=== PATIENT | female | born 1950 | race Caucasian/White ===

== ENCOUNTER 2021-02-08 13:43 | Emergency (ER) | payer MEDICARE ==
[2021-02-08 13:52] VITALS: BP 163/75; PULSE 60; RESP 18; TEMP 98.5
--- NOTE | 2021-02-08 14:30 | ED ---
Skin/Abscess/FB HPI - General Chief complaint: Skin/Abscess/Foreign Body Stated complaint: Female UG Time Seen by Provider: 02/08/21 14:01 Source: patient Mode of arrival: ambulatory Limitations: no limitations - History of Present Illness Initial comments: Charity 70-year-old female presents the ER today for evaluation of vaginal discomfort. Patient states yesterday she was outside all day she did notice multiple ticks on her but was able to remove them. She states that this morning she had some vaginal discomfort upon wiping and looked at her vulva with a mere and was concerned that she saw dark spot was concerned she may have a tick on her vagina. - Related Data Previous Rx's Medication Instructions Recorded Nitrofurantoin Monohyd/M-Cryst 100 mg PO Q12HR #6 cap 02/08/21 [Macrobid] Allergies Allergy/AdvReac Type Severity Reaction Status Date / Time Penicillins Allergy palpitation Verified 02/08/21 13:52 s Review of Systems ROS Statement: Those systems with pertinent positive or pertinent negative responses have been documented in the HPI. ROS Other: All systems not noted in ROS Statement are negative. Past Medical History Past Medical History: Atrial Fibrillation, Hypertension, Thyroid Disorder History of Any Multi-Drug Resistant Organisms: None Reported Past Surgical History: Breast Surgery, Orthopedic Surgery Additional Past Surgical History / Comment(s): minh knees,rt shoulder, rt thumb, minh cataracts Past Psychological History: Panic Disorder Smoking Status: Never smoker Past Alcohol Use History: None Reported Past Drug Use History: None Reported General Exam - General Exam Comments Initial Comments: Physical Exam GENERAL: Patient is well-developed and well-nourished. Patient is nontoxic and well-hydrated and is in no distress. HENT: Normocephalic, Atraumatic. EYES: PERRL, EOMI PULMONARY: Unlabored respirations. CARDIOVASCULAR: RRR Warm and well perfused extremities ABDOMEN: Non-distended SKIN: No rashes or bruising : Normal external genitalia, small area of irritation/abrasion at vaginal introitus NEUROLOGIC: Alert and oriented Normal speech Normal gait MUSCULOSKELETAL: Moving all extremities with no apparent injury PSYCHIATRIC: No SI/HI Limitations: no limitations Course Vital Signs 02/08/21 13:45 Temperature 98.5 F Pulse Rate 60 Respiratory 18 Rate Blood Pressure 163/75 O2 Sat by Pulse 99 Oximetry Medical Decision Making - Medical Decision Making She was seen and evaluated history is obtained from the patient physical exam was unremarkable only for some abrasion at the vaginal introitus likely from patient evaluation and rubbing the area with a Q-tip Urinalysis is suggestive of a possible early urinary tract infection She was discharged home on oral antibiotics - Lab Data Lab Results 02/08/21 Range/Units 14:28 Urine Color Yellow Urine Appearance Clear (Clear) Urine pH 5.5 (5.0-8.0) Ur Specific [place] 1.022 (1.001-1.035) Urine Protein 1+ H (Negative) Urine Glucose (UA) Negative (Negative) Urine Ketones Trace H (Negative) Urine Blood Small H (Negative) Urine Nitrite Negative (Negative) Urine Bilirubin Negative (Negative) Urine Urobilinogen <2.0 (<2.0) mg/dL Ur Leukocyte Esterase Small H (Negative) Urine RBC 3 (0-5) /hpf Urine WBC 4 (0-5) /hpf Hyaline Casts 1 (0-2) /lpf Urine Mucus Occasional H (None) /hpf Disposition Clinical Impression: UTI (urinary tract infection) Disposition: HOME SELF-CARE Condition: Stable Instructions (If sedation given, give patient instructions): Urinary Tract Infection in Women (DC) Prescriptions: Nitrofurantoin Monohyd/M-Cryst [Macrobid] 100 mg PO Q12HR #6 cap Is patient prescribed a controlled substance at d/c from ED?: No Referrals: Gena Chung MD [Primary Care Provider] - 1-2 days
[2021-02-08 14:46] LABS: Appearance,Urine Clear (Clear); Bilirubin,Urine Negative (Negative); Blood,Urine Small (Negative); Color,Urine Yellow; Glucose,Urine (UA) Negative (Negative); Hyaline Casts,Urine 1 /lpf (0-2); Ketones,Urine Trace (Negative); Leukocyte Esterase,Urine Small (Negative); Mucus,Urine Occasional /hpf; Nitrite,Urine Negative (Negative); PH, Urine 5.5 (5.0-8.0); Protein,Urine 1+ (Negative); RBC,Urine 3 /hpf (0-5); Specific Gravity,Urine 1.022 (1.001-1.035); Urobilinogen,Urine <2.0 mg/dL (<2.0); WBC,Urine 4 /hpf (0-5)
== END 2021-02-08 15:13 | disposition home or self-care (01) ==
LOC: EC 13:43
DX: N39.0 Urinary tract infection, site not specified (principal); I10 Essential (primary) hypertension; I48.91 Unspecified atrial fibrillation; Z88.0 Allergy status to penicillin
CPT/HCPCS: 81001; 99283

== ENCOUNTER → 2021-04-01 | Outpatient (CLI) | payer MEDICARE | END | disposition home or self-care (01) | LOC: LABPAT 13:08 | PROVIDERS: ATTEND Orthopaedic Surgery | DX: Z01.812 Encounter for preprocedural laboratory examination (principal) | CPT/HCPCS: 87070 ==

== ENCOUNTER → 2021-04-08 | Day surgery (SDC) | payer MEDICARE ==
[2021-04-04 16:16] VITALS: BMI 30.8
[~2021-04-08] MED LIST: ALPRAZolam 0.25 MG TAB PO PRN; ALPRAZolam 0.5 MG TAB PO PRN; ASPIRIN 325 MG TAB PO STA; FLECAINIDE 50 MG TAB PO SCH; HEPARIN SODIUM 1,000 UN/ML (10ML VL) IV ONE; HEPARIN SODIUM 1,000 UN/ML (10ML VL) ONE; HEPARIN SODIUM,PORCINE 10,000 UNIT in SODIUM CHLORIDE 0.9% 1,000 ML IRRIGATION PRN; HEPARIN SODIUM,PORCINE 2,500 UNIT in SODIUM CHLORIDE 0.9% 250 ML IRRIGATION PRN; IOPAMIDOL-370 125ML BTL INJ ONE; LEVOTHYROXINE 75 MCG TAB PO SCH; LIDOCAINE 1% INJ 10MG/ML (20 ML MDV) ONE; LIDOCAINE 1% INJ 10MG/ML (20 ML MDV) SQ ONE; METOPROLOL TARTRATE 25 MG TAB PO SCH; MIDAZOLAM 2 MG/2 ML VIAL IV ONE; MULTIVITAMINS, THERA 1 EACH TAB PO SCH; NITROGLYCERIN SL TABS 0.4 MG TAB SUBLINGUAL PRN; RX INFO: IV CONTRAST WAS GIVEN 1 EACH MISC MISCELLANE PRN; SODIUM CHLORIDE 0.9% 1,000 ML IV SCH; SODIUM CHLORIDE 0.9% 1,000 ML in EMPTY BAG 1 BAG IV ONE; VERAPAMIL 2.5 MG/ML 2 ML AMP ONE; VERAPAMIL SYRINGE (5 MG/10 ML) INTRAARTER ONE; fentaNYL (PF) 50 MCG/ML 2 ML AMP IV ONE; fentaNYL (PF) 50 MCG/ML 2 ML AMP ONE
[2021-04-08 08:27] LABS: Basophils % (A) 0 %; Eosinophils # (A) 0.1 k/uL (0-0.7); Eosinophils % (A) 2 %; HCT 39.2 % (34.0-46.0); HGB 13.3 gm/dL (11.4-16.0); Lymphocytes # (A) 1.4 k/uL (1.0-4.8); Lymphocytes % (A) 26 %; MCH 31.7 pg (25.0-35.0); MCHC 33.8 g/dL (31.0-37.0); MCV 93.8 fL (80.0-100.0); Mean Platelet Volume 8.4; Monocytes # (A) 0.4 k/uL (0-1.0); Monocytes % (A) 7 %; Neutrophils # (A) 3.4 k/uL (1.3-7.7); Neutrophils % (A) 62 %; Platelet Count 204 k/uL (150-450); RBC 4.18 m/uL (3.80-5.40); RDW 12.7 % (11.5-15.5); WBC 5.4 k/uL (3.8-10.6)
[2021-04-08 10:06] VITALS: RESP 14; TEMP 98.1
--- NOTE | 2021-04-08 11:00 | CC ---
CARDIAC CATHETERIZATION REPORT Mrs. Leach is a 70-year-old female with no prior documented coronary artery disease who is scheduled to undergo orthopedic surgery and she had a myocardial perfusion imaging that revealed evidence of lateral wall ischemia. She has occasional chest discomfort. In view of that, and her history, recommendation made regarding cardiac catheterization. The procedure as well as the risks and the complications were discussed with the patient who is in full understanding and agreement. PROCEDURE: Patient was brought to fence laborer in a fasting semi-sedated state after receiving fentanyl and Benadryl and achieving moderate conscious sedated state, using Xylocaine anesthesia and Seldinger technique, a 6-Singaporean sheath was introduced in the right radial artery. Selective right and left coronary angiography performed using 5-[place]an 3.5 bend right and left Pedro catheter. Multiple views including hemiaxial views were obtained. The right Pedro was used to cross the aortic valve and left ventricular end-diastolic pressure was calculated. Following that, catheter and sheath were removed. Hemostasis was obtained with deployment of TR band. There was no immediate complication patient is returned to room in stable condition. Of note, the patient received 4000 units of intravenous heparin, as well as intra-arterial verapamil. FINDINGS: LEFT MAIN: This is a large-sized vessel, bifurcating into left circumflex. Left main coronary artery has no evidence of high-grade stenosis. LEFT ANTERIOR DESCENDING ARTERY: This is a large-sized vessel, tapers down distal third, giving rise to 2 diagonal branches, the takeoff of the first diagonal branch. There is a 20% eccentric plaque. The rest of the vessel has no high-grade stenosis. LEFT CIRCUMFLEX: This is a large size vessel nondominant giving rise to 2 obtuse marginal branch. The second one is large in caliber. It is tortuous. The left circumflex as well as branches have no evidence of obstructive lung disease. RIGHT CORONARY ARTERY: This is a large dominant vessel bifurcating into PDA and posterolateral segment branches. The right PDA reaches to the inferoapical wall. The right coronary artery, as well as branches, have no evidence of obstructive disease. LEFT VENTRICULOGRAM: Left ventriculogram was not performed. HEMODYNAMICS: There was no gradient across the aortic valve. The left ventricular end-diastolic pressure was 15-18 mmHg. CONCLUSION: 1. Mild obstructive disease involving the LAD. 2. Right dominance. RECOMMENDATION: In view of finding anatomy, I recommend continue medical therapy. The patient should be able to proceed with her scheduled surgical intervention. Those recommendations were discussed with the patient and her family and they are in full understanding and agreement. Duration of sedation is 15 minutes. MMHOWIEL / ANGELIAN: [id number] /
[2021-04-08 13:03] VITALS: BP 115/55; PULSE 48
== END | disposition home or self-care (01) ==
LOC: CATHCVL 07:36
PROVIDERS: ATTEND Internal Medicine Interventional Cardiology
DX: Z01.810 Encounter for preprocedural cardiovascular examination (principal); I25.10 Atherosclerotic heart disease of native coronary artery without angina pectoris; I48.0 Paroxysmal atrial fibrillation; Z82.49 Family history of ischemic heart disease and other diseases of the circulatory system; Z79.899 Other long term (current) drug therapy; Z79.01 Long term (current) use of anticoagulants; I34.0 Nonrheumatic mitral (valve) insufficiency
CPT/HCPCS: 93458; 85025; C1894; C1769; J2250; J2001; J3010; J1644; Q9967

== ENCOUNTER 2021-05-05 05:41 | Day surgery (SDC) | payer MEDICARE ==
[2021-05-02 12:22] VITALS: BMI 30.1
--- NOTE | 2021-05-04 10:59 | HP ---
HISTORY AND PHYSICAL REASON FOR ADMISSION: Surgery scheduled for 05/05/2021 HISTORY OF PRESENT ILLNESS: Charity Leach is a 70-year-old patient seen with symptomatic right knee osteoarthritis. We discussed options for treatment. She elected to proceed with right total knee arthroplasty. Consent was obtained. Medical clearance was provided by Dr. Chung. Cardiac clearance by Dr. England. PAST MEDICAL HISTORY: Hypothyroidism, hypertension, atrial fibrillation. PAST SURGICAL HISTORY: Bilateral knee arthroscopy, cataract surgery. DAILY MEDICATIONS: Levothyroxine, metoprolol, Xarelto. ALLERGIES: CELEBREX, PENICILLIN. SOCIAL HISTORY: She denies tobacco use. PHYSICAL EVALUATION OF THE RIGHT KNEE: Range of motion is -3/4-100. Mild effusion. Tenderness medial joint line. Crepitus medial and patellofemoral compartments with range of motion. Pain with patellofemoral compression. Ligaments stable. Hip rotation without pain. Distal neurovascular exam intact. RADIOGRAPHS: Right knee radiographs reveal severe osteoarthritic changes. IMPRESSION: 1. Right knee osteoarthritis. 2. Hypertension. 3. Hypothyroidism. 4. Atrial fibrillation. PLAN: Right total knee arthroplasty. Surgery 05/05/2021. MMODL / IJN: [id number] /
[~2021-05-05 05:41] MED LIST changes: +ACETAMINOPHEN TAB 500 MG TAB PO PRN; -ALPRAZolam 0.25 MG TAB PO PRN; -ALPRAZolam 0.5 MG TAB PO PRN; -ASPIRIN 325 MG TAB PO STA; -FLECAINIDE 50 MG TAB PO SCH; -HEPARIN SODIUM 1,000 UN/ML (10ML VL) IV ONE; -HEPARIN SODIUM 1,000 UN/ML (10ML VL) ONE; -HEPARIN SODIUM,PORCINE 10,000 UNIT in SODIUM CHLORIDE 0.9% 1,000 ML IRRIGATION PRN; -HEPARIN SODIUM,PORCINE 2,500 UNIT in SODIUM CHLORIDE 0.9% 250 ML IRRIGATION PRN; -IOPAMIDOL-370 125ML BTL INJ ONE; -LEVOTHYROXINE 75 MCG TAB PO SCH; +LIDOCAINE 1% (10MG/ML) FOR IV START INTRADERMA PRN; -LIDOCAINE 1% INJ 10MG/ML (20 ML MDV) ONE; -LIDOCAINE 1% INJ 10MG/ML (20 ML MDV) SQ ONE; +MELOXICAM 7.5 MG TAB PO PRN; -METOPROLOL TARTRATE 25 MG TAB PO SCH; -MIDAZOLAM 2 MG/2 ML VIAL IV ONE; +MIDAZOLAM 2 MG/2 ML VIAL IV PRN; -MULTIVITAMINS, THERA 1 EACH TAB PO SCH; -NITROGLYCERIN SL TABS 0.4 MG TAB SUBLINGUAL PRN; +ROPIVACAINE/EPI/CLONIDINE/KET 50 ML SYRINGE MISCELLANE PRN; -RX INFO: IV CONTRAST WAS GIVEN 1 EACH MISC MISCELLANE PRN; -SODIUM CHLORIDE 0.9% 1,000 ML IV SCH; -SODIUM CHLORIDE 0.9% 1,000 ML in EMPTY BAG 1 BAG IV ONE; +TRANEXAMIC ACID 1,000 MG in SODIUM CHLORIDE 0.9% 100 ML IVPB PRN; -VERAPAMIL 2.5 MG/ML 2 ML AMP ONE; -VERAPAMIL SYRINGE (5 MG/10 ML) INTRAARTER ONE; -fentaNYL (PF) 50 MCG/ML 2 ML AMP IV ONE; -fentaNYL (PF) 50 MCG/ML 2 ML AMP ONE
[2021-05-05] MEDS ORDERED: ONDANSETRON 4 MG/2 ML VIAL ONE (06:29)
[2021-05-05] MEDS: LACTATED RINGERS 1,000 ML IV SCH ×2 (06:51→13:45)
[2021-05-05] MEDS ORDERED: DEXAMETHASONE SOD PHOSPHATE 4 MG/ML 1 ML VIAL IVP ONE (06:53)
[2021-05-05] MEDS ORDERED: SODIUM CHLORIDE 0.9% 100 ML BAG ONE (07:32)
[2021-05-05] MEDS ORDERED: TRANEXAMIC ACID 1,000 MG/10 ML VIAL ONE (07:32)
[2021-05-05] MEDS ORDERED: NEOSTIGMINE 1 MG/ML 10 ML VIAL ONE (07:32)
[2021-05-05] MEDS ORDERED: PROPOFOL 10 MG/ML 20 ML VIAL IV ONE (07:32)
[2021-05-05] MEDS ORDERED: fentaNYL (PF) 50 MCG/ML 2 ML AMP ONE (07:32)
[2021-05-05] MEDS ORDERED: ROPIVACAINE 5 MG/ML 30 ML VIAL ONE (07:32)
[2021-05-05] MEDS ORDERED: DEXAMETHASONE SOD PHOSPHATE 4 MG/ML 1 ML VIAL ONE (07:32)
[2021-05-05] MEDS ORDERED: HYDROmorphone (PF) 1 MG/ML ONE (07:32)
[2021-05-05] MEDS ORDERED: SUCCINYLCHOLINE CHLORIDE 100 MG/5 ML SYR IV ONE (07:32)
[2021-05-05] MEDS ORDERED: LIDOCAINE 1% INJ 10MG/ML (20 ML MDV) ONE (07:32)
[2021-05-05] MEDS ORDERED: ROCURONIUM 10 MG/ML (5 ML VIAL) IV ONE (07:32)
[2021-05-05] MEDS ORDERED: ePHEDrine SULFATE/0.9% NACL/PF 50 MG/5 ML SYRINGE IV ONE (07:32)
[2021-05-05] MEDS ORDERED: GLYCOPYRROLATE 0.2 MG/ML 2 ML VIAL ONE (07:32)
[2021-05-05] MEDS ORDERED: ceFAZolin 1,000 MG in SODIUM CHLORIDE 0.9% 1,000 ML IRRIGATION ONE (08:08)
[2021-05-05] MEDS ORDERED: ROPIVACAINE 0.2%-NS ON-Q PUMP 1,090 MG, EMPTY PAIN BALL 1 EACH MISCELLANE PRN (09:05)
[2021-05-05] MEDS ORDERED: HYDROcodone/APAP 5-325MG 1 EACH TAB PO PRN ×2 (09:13)
[2021-05-05] MEDS ORDERED: HYDROmorphone 0.2 MG/1 ML SYRINGE IVP PRN (09:13)
[2021-05-05] MEDS ORDERED: HYDROmorphone 0.5 MG/0.5 ML SYRINGE IVP PRN ×2 (09:13)
[2021-05-05] MEDS ORDERED: ONDANSETRON 4 MG/2 ML VIAL IVP PRN (09:13)
[2021-05-05] MEDS ORDERED: LACTATED RINGERS 1,000 ML IV ONE (09:13)
[2021-05-05] MEDS ORDERED: NALOXONE 0.4 MG/ML 1 ML VIAL IV PRN (09:13)
--- NOTE | 2021-05-05 09:13 | P.OP ---
Date of Procedure: 05/05/21 Preoperative Diagnosis: Right knee osteoarthritis Postoperative Diagnosis: Right knee osteoarthritis Procedure(s) Performed: Right total knee arthroplasty Implants: 1. Depuy attune cruciate retaining size 5 right narrow cemented femur 2. Depuy attune fixed bearing size 5 cemented tibial baseplate 3. Depuy attune size 5 fixed bearing cruciate retaining 12 mm polyethylene insert 4. Depuy attune 38 mm all polyethylene cemented patella Anesthesia: GETA, regional (Adductor canal catheter, Ipack block) Surgeon: Devon Ambrosio Special Procedures Technologist #1: Gildardo Gonzalez Estimated Blood Loss (ml): 45 Pathology: other (Bone) Condition: stable Disposition: PACU Indications for Procedure: 70-year-old patient seen with symptomatic right knee osteoarthritis. After having treatment options discussed, she elected to proceed with total knee arthroplasty. Operative Findings: see description of procedure Description of Procedure: Patient was taken to the operative suite after having an adductor canal catheter placed by the department of anesthesia. Patient underwent a general anesthetic by the department of anesthesia. Patient was given preoperative IV intake antibiotics and TXA. A well-padded tourniquet was placed about the right lower extremity. The lower extremity was then prepped and draped in the normal sterile orthopedic fashion. The extremity was elevated, a tourniquet was insufflated to 300. A standard anterior incision was made sharply through skin. Dissection was taken down through the subcutaneous soft tissues down to the extensor mechanism. A medial arthrotomy was performed, patella was everted and knee was flexed. There was advanced osteoarthritis noted. I introduced my distal intramedullary femoral drill. I then introduced the distal femoral cu tting jig. Stevie REYNAGA secured the cutting jig with 2 pins. I held retractors in position while Stevie REYNAGA performed the distal femoral resection through the guide area we now removed her distal femoral cutting guide. We now placed our 4-in-1 femoral cutting block and positioned and it was secured with 2 pins by Stevie REYNAGA while I held the block in position. The distal femoral finishing was now completed. A proximal tibial cutting guide was positioned. I held the guide in the appropriate position with both hands well Stevie REYNAGA inserted stabilizing pins into the guide. Proximal tibial cut was made. We now placed a trial femoral component into position, along with an appropriate size tibial tray and insert. We now took the knee through range of motion and had full extension good flexion and good overall soft tissue balance noted. The patella was everted and stabilized with 2 towel clips held by Stevie REYNAGA while I performed a flush with patellar quad tendon utilizing a fresh sawblade. We templated the patella, appropriate drill holes were made. An appropriate trial patella was positioned, knee was taken through full range of motion with the patella tracking very nicely. The trial patella was removed. Drill holes were made through the femoral component. All trial components were removed after marking off the appropriate rotation of the tibia. Retractors were now positioned along the proximal tibia. An appropriate keel punch was made with the appropriate size tibial guide by myself on Stevie REYNAGA assisted by holding retractors. At this point appropriate size implants were chosen and opened. The joint was irrigated copiously with pulse lavage mechanical irrigation. The posterior capsule was infiltrated with local analgesic. The wound was irrigated with pulse lavage mechanical irrigation. We mixed antibiotic methylmethacrylate. We placed the knee into flexion. We placed multiple retractors assisted by Stevie REYNAGA to expose the proximal tibia. Once the methyl methacrylate was ready, the tibial component was cemented into place removing any excess methylmethacrylate form by both myself and Stevie REYNAGA. The femoral component was cemented into place removing the removing any excess methylmethacrylate performed by both myself and Stevie REYNAGA. We then inserted the appropriate size polyethylene tibial insert. We made sure that it was locked into position. We took the knee into full extension, and then back in a flexion making sure we had removed any excess methylmethacrylate. The patellar component was then cemented down and secured with clamp. Excess methylmethacrylate removed. We kept the knee in full extension, patellar clamp in position until methylmethacrylate had hardened. Once it had hardened the patellar clamp was removed. The knee was taken through full range of motion. The patella tracked nicely. There was good soft tissue balancing. The tourniquet was now released. Additional hemostasis was achieved via electrocautery. A second gram of TXA was given. The wound again was irrigated with pulse lavage mechanical irrigation. The extensor mechanism was repaired with Ethibond. We checked the repair with range of motion and it was stable. The subcutaneous soft tissues were repaired with Vicryl in layers. The skin was approximated with pernio/Dermabond. Sterile dressings were applied followed by loose web roll and Andre bandage. The patient was transferred to a bed, and taken to recovery in stable and satisfactory condition. Stevie REYNAGA assisted with this complex procedure.
[2021-05-05] MEDS: fentaNYL (PF) 50 MCG/ML 2 ML AMP IVP PRN ×3 (09:37→10:05)
[2021-05-05 09:46] VITALS: TEMP 97.1
[2021-05-05 09:48] VITALS: RESP 16
--- NOTE | 2021-05-05 11:04 | XR ---
EXAMINATION TYPE: XR knee limited RT DATE OF EXAM: 05/05/2021 COMPARISON: NONE TECHNIQUE: Two views submitted HISTORY: Post op FINDINGS: There is a prosthetic knee in near anatomic alignment. There is soft tissue edema and emphysema. IMPRESSION: 1. Postoperative change. Appears in near-anatomic alignment
[2021-05-05 14:39] VITALS: BP 157/74; PULSE 55
--- NOTE | 2021-05-06 07:11 | P.ANPRN ---
Procedure Note - Anesthesia - Nerve Block Performed Right Adductor Canal Infusion Time Out Performed: Yes Date of Procedure: 05/05/21 Procedure Start Time: :13 Procedure Stop Time: :20 Location of Patient: PreOp Indication: Acute Post-Operative Pain, Requested by Surgeon Sedation Type: Sedate with meaningful contact maintained Preparation: Sterile Prep, Sterile Dressing Position: Supine Catheter: Indwelling Needle Types: Pajunk Needle Gauge: 21 Ultrasound used to visualize needle placement: Yes Ultrasound used to observe medication spread: Yes Blood Aspirated: No Pain Paresthesia on Injection Noted: No Resistance on Injection: Normal Image Stored and Saved: Yes Events: Uneventful and Well Tolerated (ropi .5% 20cc)
--- NOTE | 2021-05-06 07:12 | P.ANPRN ---
Procedure Note - Anesthesia - Nerve Block Performed Right [place] Single Time Out Performed: Yes Date of Procedure: 05/05/21 Procedure Start Time: Procedure Stop Time: Location of Patient: PreOp Indication: Acute Post-Operative Pain, Requested by Surgeon Sedation Type: Sedate with meaningful contact maintained Preparation: Sterile Prep Position: Supine Needle Types: Pajunk Needle Gauge: 21 Ultrasound used to visualize needle placement: Yes Ultrasound used to observe medication spread: Yes Blood Aspirated: No Pain Paresthesia on Injection Noted: No Resistance on Injection: Normal Image Stored and Saved: Yes Events: Uneventful and Well Tolerated (Ropivacaine 0. 5% 25 mL with dexamethasone 4 mg)
== END 2021-05-05 15:05 | disposition home health service (06) ==
LOC: OR 05:41
PROVIDERS: ATTEND Orthopaedic Surgery
DX: M17.11 Unilateral primary osteoarthritis, right knee (principal); E03.9 Hypothyroidism, unspecified; I10 Essential (primary) hypertension; Z79.899 Other long term (current) drug therapy; Z88.6 Allergy status to analgesic agent; Z88.0 Allergy status to penicillin
CPT/HCPCS: 97110; 97161; 64999; 64448; 76942; 88300; 73560; 27447; C1776; C1713 ×2; J2250; J1100; J2710; J0690 ×2; J2405; J2001; J3010; J1170; J2795 ×2; J0330; J2704

== ENCOUNTER 2022-12-11 07:21 | Day surgery (SDC) | payer MEDICARE ==
[2022-12-09 12:19] VITALS: BMI 27.4
[~2022-12-11 07:21] MED LIST changes: -ACETAMINOPHEN TAB 500 MG TAB PO PRN; +DEXAMETHASONE SOD PHOSPHATE 4 MG/ML 1 ML VIAL IV ONE; +HYDROmorphone 0.5 MG/0.5 ML SYRINGE IVP PRN; +LACTATED RINGERS 1,000 ML IV SCH; -MELOXICAM 7.5 MG TAB PO PRN; +ONDANSETRON 4 MG/2 ML VIAL IVP ONE; -ROPIVACAINE/EPI/CLONIDINE/KET 50 ML SYRINGE MISCELLANE PRN; -TRANEXAMIC ACID 1,000 MG in SODIUM CHLORIDE 0.9% 100 ML IVPB PRN
[2022-12-11] MEDS ORDERED: LIDOCAINE 2% INJ 20 MG/ML (2 ML VIAL) ONE (08:48)
[2022-12-11] MEDS ORDERED: MIDAZOLAM 2 MG/2 ML VIAL ONE (08:48)
[2022-12-11] MEDS ORDERED: PROPOFOL 10 MG/ML 20 ML VIAL IV ONE (08:48)
[2022-12-11] MEDS ORDERED: BUPIVACAINE (PF) 0.25% 30 ML VIAL SQ ONE (09:09)
[2022-12-11 09:34] VITALS: TEMP 96.8
--- NOTE | 2022-12-11 09:36 | P.OP ---
Date of Procedure: 12/11/22 Preoperative Diagnosis: Hammertoe second digit right foot Postoperative Diagnosis: Same Procedure(s) Performed: Correction of hammertoe second digit right foot Implants: 2.5 mm x 30 mm headless cannulated screw Anesthesia: MAC Surgeon: Jad Harris Estimated Blood Loss (ml): 1 Pathology: none sent Condition: stable Disposition: PACU Description of Procedure: The patient was brought into the operative room and placed on table in the supine position. Timeout was taken to confirm correct patient identifiers, correct lateral view of surgery, and correct procedure. Once all staff in the room were in agreement with the timeout, the patient was placed under IV sedation anesthesia. A well-padded tourniquet was placed on her ankle. Then 20 mL of 0.25% Marcaine was injected as a right forefoot block. The right foot was then prepped and draped in usual manner. The foot was exsanguinated and the tourniquet inflated to 250 mmHg. Attention was directed over the dorsal aspect of the foot just proximal to the second metatarsal phalangeal joint, where the extensor tendon was identified and a small stab incision was made medial to the tendon. The blade was rotated deep to the tendon then oriented dorsally and the digit plantarflexed to resect the extensor tendon. Then attention was directed over the proximal interphalangeal joint where a linear incision was made over the joint. It was deepened down to the saphenous tissue careful to identify, avoid, and retract any neurovascular structures and cauterize any bleeding vessels. A transverse incision was made to the proximal interphalangeal joint resecting the extensor tendon and the col lateral ligaments. A sagittal saw was used to resect the proximal phalangeal head perpendicular to the long axis of the proximal phalanx. A Angel was used to remove the articular cartilage of the base of the middle phalanx. A guidewire was used to create a oversize load pilot escort hole in the proximal phalanx and was advanced down to the base. The same wire was used at the base of middle phalanx and advanced out the distal aspect of the toe. The wire was alignment of the oversize load pilot escort hole the proximal phalanx of the wire advanced to the base. Fluoroscopy indicated that the wire was in proper position and the digit was rectus. A small stab incision was made around the wire and then a 2.5 mm x 30 mm headless cannulated screw was placed over the wire and then advanced until the head engaged the distal phalanx. Fluoroscopic imaging showed that the screws at proper depth and that the alignment of the digit was maintained. The wire was removed and the wounds irrigated thoroughly with antibiotic saline. The extensor tendon was repaired with 3-0 Vicryl. Skin incisions were closed with 3-0 nylon. Nonadherent gauze and a dry sterile dressing were applied to the right foot. The tourniquet was released and capillary refill return to all digits on the right foot. The patient tolerated above procedure and anesthesia well which recovery with vital signs stable
[2022-12-11 10:50] VITALS: BP 156/67; PULSE 50; RESP 18
== END 2022-12-11 11:16 | disposition home or self-care (01) ==
LOC: OR 07:21
PROVIDERS: ATTEND Podiatrist
DX: M20.41 Other hammer toe(s) (acquired), right foot (principal); I48.91 Unspecified atrial fibrillation; Z79.01 Long term (current) use of anticoagulants; Z79.899 Other long term (current) drug therapy; Z88.0 Allergy status to penicillin; Z88.8 Allergy status to other drugs, medicaments and biological substances; Z96.653 Presence of artificial knee joint, bilateral; Z82.49 Family history of ischemic heart disease and other diseases of the circulatory system; Z83.3 Family history of diabetes mellitus
CPT/HCPCS: 28285; C1713; J2250; J1100; J0690; J2405; J2704; J2001